=== PATIENT | male | born 1995 | race Caucasian/White ===

== ENCOUNTER 2017-03-28 17:42 | Emergency (ER) | payer BC ==
[~2017-03-28] VITALS: Ht 185.4 cm; Wt 100.0 kg
[2017-03-28 17:45] VITALS: BP 148/86; PULSE 103; RESP 12; TEMP 98.4; O2SAT 99
[2017-03-28] MEDS ORDERED: LIDOCAINE HCL 2% 20 ML VIAL INFIL ONE (18:30)
[2017-03-28] MEDS ORDERED: LIDOCAINE HCL 1% 50 ML VIAL INFIL ONE (18:30)
[2017-03-28] MEDS ORDERED: AUGM875T3 PO (19:15)
[2017-03-28] MEDS ORDERED: AMOXICILLIN/CLAVULANATE K 875 MG TAB PO ONE (19:15)
--- NOTE | 2017-03-28 19:15 | PD ---
HPI Chief Complaint: Laceration/Skin Injury Time Seen by Provider: 18:17 Travel History International Travel<30 days: No Contact w/Intl Traveler<30days: No Traveled to known affect area: No History of Present Illness HPI 21-year-old male here for evaluation of upper lip laceration/facial trauma. The patient was plain basketball when another player's head struck his upper lip. He did not lose consciousness. This occurred about 15-20 minutes prior to arriving in the emergency department. Pain is moderate, constant, worse with movements. No malocclusion, loose teeth, or missing teeth. No neck or back pain. No upper or lower extremity pain. Tetanus is up-to-date. [facility] Social History Tobacco Use: No Allergies-Medications (Allergen,Severity, Reaction): Coded Allergies: No Known Allergies (Verified Allergy, Unknown, 03/28/17) Reported Meds & Prescriptions Reported Meds & Active Scripts Active Augmentin (Amoxicillin-Clavulanate) 875-125 Mg Tab 1 Tab PO BID 7 Days Review of Systems Except as stated in HPI: all other systems reviewed are Neg Physical Exam Narrative GENERAL: Well-developed, well-nourished, awake, alert, GCS 15, no acute distress. SKIN: Focused skin assessment warm/dry. HEAD: Upper lip laceration, see ENT. No craniofacial step-offs. Normocephalic. EYES: Pupils equal, round, 3 mm, reactive to light. EOMI. No scleral icterus. No injection or drainage. ENT: No nasal bleeding or discharge. Mucous membranes pink and moist. Left upper lip laceration through the vermilion border, approximately 3 cm in length , deep, no visible contaminants, no active bleeding. No malocclusion. No loose , missing, or broken teeth. NECK: Trachea midline. No JVD. No midline cervical spinous step-off or tenderness. CARDIOVASCULAR: Regular rate and rhythm. RESPIRATORY: No accessory muscle use. MUSCULOSKELETAL: No obvious deformities. No clubbing. No cyanosis. No edema. NEUROLOGICAL: Awake and alert. No obvious cranial nerve deficits. Motor grossly within normal limits. Normal speech. PSYCHIATRIC: Appropriate mood and affect; insight and judgment normal. Data Data Last Documented VS Vital Signs Date Time Temp Pulse Resp B/P (MAP) Pulse Ox O2 Delivery O2 Flow Rate FiO2 03/28/17 19:18 03/28/17 17:45 98.4 103 12 99 Orders Orders Lidocaine 1% Inj (50 Ml) (Xylocaine 1% I (03/28/17 18:30) Lidocaine 2% Inj (Xylocaine 2% Inj) (03/28/17 18:30) Amoxicil-Clavulanate (Augmentin) (03/28/17 19:15) Ed Discharge Order (03/28/17 20:19) MDM Medical Decision Making Medical Screen Exam Complete: Yes Emergency Medical Condition: Yes Differential Diagnosis Upper lip laceration, facial contusion Narrative Course Vital signs reviewed. Left upper lip laceration repaired by me, see procedure note. Patient is stable for discharge home and advised to return to the emergency Department in 5 days for possible suture removal. He was advised on when to return to the emergency Department sooner. He will be started on Augmentin. He verbalizes understanding and agreement with plan. Procedures Procedure Narrative Left infraorbital nerve block: 2 cc of 2% lidocaine was injected in the area of the left infraorbital nerve. Intraoral approach was performed. Tolerated well. No complications. Left upper lip laceration: After left infraorbital nerve block was performed, the left upper lip laceration was thoroughly irrigated. Vermilion border was lined up with a single suture. A total of nine 5-0 chromic gut sutures were used for the repair. Tolerated well. No complications. Diagnosis Primary Impression: Laceration of vermilion border of upper lip Qualified Codes: S01.511A - Laceration without foreign body of lip, initial encounter Additional Impression: Head injury Qualified Codes: S09.90XA - Unspecified injury of head, initial encounter Referrals: Primary Care Physician 3 days Additional Instructions: Return to the emergency Department in 5 days for possible suture removal. Return to the emergency Department sooner for worsening symptoms or any other concerns as discussed. Scripts Amoxicillin-Clavulanate (Augmentin) 875-125 Mg Tab 1 TAB PO BID for Infection for 7 Days, #14 TAB 0 Refills Prov: Emanuel Pfeiffer MD 03/28/17 Disposition: 01 DISCHARGE HOME Condition: Stable Emanuel Pfeiffer MD Mar 28, 2017 19:15
== END 2017-03-28 20:20 | disposition home or self-care (01) ==
LOC: NEPD 17:42
DX: S01.511A Laceration without foreign body of lip, initial encounter (principal); W50.0XXA Accidental hit or strike by another person, initial encounter; Y93.67 Activity, basketball
CPT/HCPCS: 12013